=== PATIENT | female | born 1965 | race Caucasian/White ===

== ENCOUNTER 2017-01-30 16:34 | Emergency (ER) | payer SELFPAY ==
[~2017-01-30] VITALS: Ht 167.6 cm; Wt 67.0 kg
[~2017-01-30 16:34] MED LIST: TRAM50 PO
[2017-01-30 16:49] VITALS: BP 136/79; PULSE 115; RESP 20; TEMP 97.7; O2SAT 99
[2017-01-30] MEDS ORDERED: SODIUM CHLORIDE 0.9% FLUSH 10 ML FLUSH IVF PRN (17:15)
[2017-01-30] MEDS ORDERED: SODIUM CHLOR 0.9% 1000 ML INJ 1,000 ML IV ONE (17:15)
--- NOTE | 2017-01-30 17:15 | PD ---
HPI Chief Complaint: OD/ Ingestion Time Seen by Provider: 17:03 Travel History International Travel<30 days: No Contact w/Intl Traveler<30days: No Traveled to known affect area: No History of Present Illness HPI 51-year-old female with history of polysubstance use, presents to the ER today because she states that she had taken amphetamines last night, has not been able to sleep, having palpitations, and to the heroin at 3 PM in order to calm herself down. She states that she is still feeling very anxious and jittery. She denies any other coingestions. Modifying Factors: None Associated Signs & Symptoms: Palpitations, anxiety, after taking multiple substances Risk Factors: None PFSH Past Medical History Bipolar Disorder: Yes Hepatitis: Yes (C) Psychiatric: Yes : 6 Para: 4 : 2 Past Surgical History Tonsillectomy: Yes Other Surgery: Yes (BREAST AUGMENTATION) Social History Alcohol Use: No Tobacco Use: No Substance Use: No Allergies-Medications (Allergen,Severity, Reaction): Coded Allergies: No Known Allergies (Verified , 01/30/17) Reported Meds & Prescriptions Reported Meds & Active Scripts Active No Active Prescriptions or Reported Medications Review of Systems Except as stated in HPI: all other systems reviewed are Neg Physical Exam Narrative GENERAL: Middle age white female patient currently in mild distress, anxious. Awake and oriented 3. SKIN: Warm and dry. HEAD: Atraumatic. Normocephalic. EYES: Pupils equal and round. No scleral icterus. No injection or drainage. Pupils are equal, round, reactive to light bilaterally. ENT: No nasal bleeding or discharge. Mucous membranes pink and moist. NECK: Trachea midline. No JVD. CARDIOVASCULAR: Fast and regular rhythm. No murmur appreciated. RESPIRATORY: No accessory muscle use. Clear to auscultation. Breath sounds equal bilaterally. GASTROINTESTINAL: Abdomen soft, non-tender, nondistended. Hepatic and splenic margins not palpable. MUSCULOSKELETAL: No obvious deformities. No clubbing. No cyanosis. No edema. NEUROLOGICAL: Awake and alert. No obvious cranial nerve deficits. Motor grossly within normal limits. Normal speech. PSYCHIATRIC: Appropriate mood and affect; insight and judgment normal. Data Data Last Documented VS Vital Signs Date Time Temp Pulse Resp B/P Pulse Ox O2 Delivery O2 Flow Rate FiO2 01/30/17 17:20 105 20 01/30/17 17:20 100 Room Air 01/30/17 17:17 97.8 122/76 01/30/17 16:49 2 Orders Electrocardiogram (01/30/17 17:03) Complete Blood Count With Diff (01/30/17 17:03) Comprehensive Metabolic Panel (01/30/17 17:03) Prothrombin Time / Inr (Pt) (01/30/17 17:03) Act Partial Throm Time (Ptt) (01/30/17 17:03) Iv Access Insert/Monitor (01/30/17 17:03) Ecg Monitoring (01/30/17 17:03) Oximetry (01/30/17 17:03) Sodium Chloride 0.9% Flush (Ns Flush) (01/30/17 17:15) Drug Screen, Random Urine (01/30/17 17:03) Alcohol (Ethanol) (01/30/17 17:03) Salicylates (Aspirin) (01/30/17 17:03) Tylenol (Acetaminophen) (01/30/17 17:03) Sodium Chlor 0.9% 1000 Ml Inj (Ns 1000 M (01/30/17 17:15) Labs Laboratory Tests Test 01/30/17 17:30 White Blood Count 14.4 TH/MM3 Red Blood Count 4.84 MIL/MM3 Hemoglobin 14.1 GM/DL Hematocrit 42.7 % Mean Corpuscular Volume 88.3 FL Mean Corpuscular Hemoglobin 29.2 PG Mean Corpuscular Hemoglobin 33.1 % Concent Red Cell Distribution Width 13.1 % Platelet Count 358 TH/MM3 Mean Platelet Volume 8.9 FL Neutrophils (%) (Auto) 80.7 % Lymphocytes (%) (Auto) 10.4 % Monocytes (%) (Auto) 7.6 % Eosinophils (%) (Auto) 0.9 % Basophils (%) (Auto) 0.4 % Neutrophils # (Auto) 11.6 TH/MM3 Lymphocytes # (Auto) 1.5 TH/MM3 Monocytes # (Auto) 1.1 TH/MM3 Eosinophils # (Auto) 0.1 TH/MM3 Basophils # (Auto) 0.1 TH/MM3 CBC Comment DIFF FINAL Differential Comment Prothrombin Time 10.8 SEC Prothromb Time International 1.0 RATIO Ratio Activated Partial 24.6 SEC Thromboplast Time Sodium Level 139 MEQ/L Potassium Level 3.4 MEQ/L Chloride Level 101 MEQ/L Carbon Dioxide Level 27.9 MEQ/L Anion Gap 10 MEQ/L Blood Urea Nitrogen 9 MG/DL Creatinine 0.89 MG/DL Estimat Glomerular Filtration 67 ML/MIN Rate Random Glucose 128 MG/DL Calcium Level 9.0 MG/DL Total Bilirubin 0.6 MG/DL Aspartate Amino Transf 38 U/L (AST/SGOT) Alanine Aminotransferase 112 U/L (ALT/SGPT) Alkaline Phosphatase 74 U/L Total Protein 7.6 GM/DL Albumin 3.8 GM/DL Salicylates Level LESS THAN 1.7 MG/DL Acetaminophen Level LESS THAN 2.0 MCG/ML Ethyl Alcohol Level 26 MG/DL [facility] Medical Decision Making Medical Screen Exam Complete: Yes Emergency Medical Condition: Yes Medical Record Reviewed: Yes Interpretation(s) EKG shows sinus tachycardia at a rate of 100 bpm with no signs of acute ST-T changes. Laboratory Tests Test 01/30/17 17:30 White Blood Count 14.4 TH/MM3 (4.0-11.0) Neutrophils (%) (Auto) 80.7 % (16.0-70.0) Neutrophils # (Auto) 11.6 TH/MM3 (1.8-7.7) Monocytes # (Auto) 1.1 TH/MM3 (0-0.9) Potassium Level 3.4 MEQ/L (3.5-5.1) Estimat Glomerular Filtration 67 ML/MIN (>89) Rate Random Glucose 128 MG/DL (74-106) Aspartate Amino Transf 38 U/L (15-37) (AST/SGOT) Alanine Aminotransferase 112 U/L (10-53) (ALT/SGPT) Salicylates Level LESS THAN 1.7 MG/DL (2.8-20.0) Acetaminophen Level LESS THAN 2.0 MCG/ML (10.0-30.0) Ethyl Alcohol Level 26 MG/DL (0-5) Differential Diagnosis Palpitations, anxiety, substance userule out metabolic issues versus dysrhythmias versus coingestions Narrative Course Vital signs are stable in the ER. Patient had taken her last dose of heroin at 3 PM. Does not appear to have significant effects of overdose at this time. Her Tylenol and salicylate levels are negligible. No signs of dysrhythmias. At this point, plan would be to release the patient with follow-up to primary care physician. Return for new issues as needed. She should avoid using recreational substances. Diagnosis Primary Impression: Polysubstance abuse Scripts No Active Prescriptions or Reported Meds Disposition: 01 DISCHARGE HOME Condition: Stable Laine Stuart MD Jan 30, 2017 17:15
[2017-01-30 17:17] VITALS: BP 122/76; PULSE 105; RESP 20; TEMP 97.8; O2SAT 99
[2017-01-30 17:20] VITALS: RESP 20; O2SAT 100
[2017-01-30 18:03] LABS: AUTOMATED NEUTROPHIL # 11.6 TH/MM3 (1.8-7.7); BASOPHIL # 0.1 TH/MM3 (0-0.2); BASOPHIL % 0.4 % (0.0-2.0); EOSINOPHIL # 0.1 TH/MM3 (0-0.4); EOSINOPHIL % 0.9 % (0.0-4.0); HEMATOCRIT 42.7 % (35.0-46.0); HEMO FLAGS DIFF FINAL; LYMPH % 10.4 % (9.0-44.0); LYMPHOCYTE # 1.5 TH/MM3 (1.0-4.8); MEAN CELL VOLUME 88.3 FL (80.0-100.0); MEAN CORPUSCULAR HEMOGLOBIN 29.2 PG (27.0-34.0); MEAN CORPUSCULAR HGB CONC 33.1 % (32.0-36.0); MONO % 7.6 % (0.0-8.0); NEUT % 80.7 % (16.0-70.0); PLATELET COUNT 358 TH/MM3 (150-450); RED BLOOD COUNT 4.84 MIL/MM3 (4.00-5.30); RED CELL DISTRIBUTION WIDTH 13.1 % (11.6-17.2); WHITE BLOOD COUNT 14.4 TH/MM3 (4.0-11.0)
[2017-01-30 18:15] LABS: APTT (PATIENT) 24.6 SEC (24.3-30.1); PROTHROMBIN TIME - PATIENT 10.8 SEC (9.8-11.6)
[2017-01-30 18:17] LABS: ANION GAP 10 MEQ/L (5-15); AST (GOT) 38 U/L (15-37); BICARBONATE 27.9 MEQ/L (21.0-32.0); BLOOD UREA NITROGEN 9 MG/DL (7-18); CHLORIDE 101 MEQ/L (98-107); GLOMERULAR FILTRATION RATE 67 ML/MIN (>89); POTASSIUM 3.4 MEQ/L (3.5-5.1); SODIUM (NA) 139 MEQ/L (136-145)
[2017-01-30 18:19] LABS: ALKALINE PHOSPHATASE 74 U/L (45-117); ALT (GPT) 112 U/L (10-53); TOTAL BILIRUBIN ADULT 0.6 MG/DL (0.2-1.0)
[2017-01-30 18:21] LABS: ACETAMINOPHEN LESS THAN 2.0 MCG/ML (10.0-30.0)
[2017-01-30 19:13] LABS: AMPHETAMINE, URINE POS (NEG); BARBITURATES, URINE NEG (NEG); COCAINE, URINE POS (NEG)
[2017-01-30 19:54] VITALS: BP 149/91; PULSE 99; RESP 16; O2SAT 99
--- NOTE | 2017-01-30 20:12 | PD ---
Physical Exam Narrative Patient was seen by ED physician and signed out to me. Data Data Last Documented VS Vital Signs Date Time Temp Pulse Resp B/P Pulse Ox O2 Delivery O2 Flow Rate FiO2 01/30/17 19:54 99 16 149/91 99 Room Air 01/30/17 17:17 97.8 01/30/17 16:49 2 Orders Electrocardiogram (01/30/17 17:03) Complete Blood Count With Diff (01/30/17 17:03) Comprehensive Metabolic Panel (01/30/17 17:03) Prothrombin Time / Inr (Pt) (01/30/17 17:03) Act Partial Throm Time (Ptt) (01/30/17 17:03) Iv Access Insert/Monitor (01/30/17 17:03) Ecg Monitoring (01/30/17 17:03) Oximetry (01/30/17 17:03) Sodium Chloride 0.9% Flush (Ns Flush) (01/30/17 17:15) Drug Screen, Random Urine (01/30/17 17:03) Alcohol (Ethanol) (01/30/17 17:03) Salicylates (Aspirin) (01/30/17 17:03) Tylenol (Acetaminophen) (01/30/17 17:03) Sodium Chlor 0.9% 1000 Ml Inj (Ns 1000 M (01/30/17 17:15) Labs Laboratory Tests Test 01/30/17 01/30/17 17:30 18:45 White Blood Count 14.4 TH/MM3 Red Blood Count 4.84 MIL/MM3 Hemoglobin 14.1 GM/DL Hematocrit 42.7 % Mean Corpuscular Volume 88.3 FL Mean Corpuscular Hemoglobin 29.2 PG Mean Corpuscular Hemoglobin 33.1 % Concent Red Cell Distribution Width 13.1 % Platelet Count 358 TH/MM3 Mean Platelet Volume 8.9 FL Neutrophils (%) (Auto) 80.7 % Lymphocytes (%) (Auto) 10.4 % Monocytes (%) (Auto) 7.6 % Eosinophils (%) (Auto) 0.9 % Basophils (%) (Auto) 0.4 % Neutrophils # (Auto) 11.6 TH/MM3 Lymphocytes # (Auto) 1.5 TH/MM3 Monocytes # (Auto) 1.1 TH/MM3 Eosinophils # (Auto) 0.1 TH/MM3 Basophils # (Auto) 0.1 TH/MM3 CBC Comment DIFF FINAL Differential Comment Prothrombin Time 10.8 SEC Prothromb Time International 1.0 RATIO Ratio Activated Partial 24.6 SEC Thromboplast Time Sodium Level 139 MEQ/L Potassium Level 3.4 MEQ/L Chloride Level 101 MEQ/L Carbon Dioxide Level 27.9 MEQ/L Anion Gap 10 MEQ/L Blood Urea Nitrogen 9 MG/DL Creatinine 0.89 MG/DL Estimat Glomerular Filtration 67 ML/MIN Rate Random Glucose 128 MG/DL Calcium Level 9.0 MG/DL Total Bilirubin 0.6 MG/DL Aspartate Amino Transf 38 U/L (AST/SGOT) Alanine Aminotransferase 112 U/L (ALT/SGPT) Alkaline Phosphatase 74 U/L Total Protein 7.6 GM/DL Albumin 3.8 GM/DL Salicylates Level LESS THAN 1.7 MG/DL Acetaminophen Level LESS THAN 2.0 MCG/ML Ethyl Alcohol Level 26 MG/DL Urine Opiates Screen POS Urine Barbiturates Screen NEG Urine Amphetamines Screen POS Urine Benzodiazepines Screen NEG Urine Cocaine Screen POS Urine Cannabinoids Screen NEG MDM Supervised Visit with JESS: No Interpretation(s) 2000 PM. CBC with WBC 14.0. 80 neutrophil. Potassium 3.4. Salicylate and acetaminophen negative. Urine drug screen positive for opiates, amphetamines, cocaine. Alcohol 26 . Narrative Course 20 10 PM. Patient is awake alert oriented unsteady on her feet. Patient to be discharged to the custody of her boyfriend. Diagnosis Primary Impression: Polysubstance abuse Patient Instructions: General Instructions Additional Instruction: Advised [facility]. Return as needed. Scripts No Active Prescriptions or Reported Meds Disposition: 01 DISCHARGE HOME Condition: Stable Manolo Doyle MD Jan 30, 2017 20:12
--- NOTE | 2017-01-31 15:51 | EKG ---
Date Performed: 01/30/2017 Time Performed: 17:15:31 PTAGE: 51 years EKG: SINUS TACHYCARDIA ABNORMAL RHYTHM ECG NO PREVIOUS TRACING DOCTOR: Onur Delcid Interpretating Date/Time 01/31/2017 15:48:03
== END 2017-01-30 20:46 | disposition home or self-care (01) ==
LOC: NEPE 16:34
DX: F19.10 Other psychoactive substance abuse, uncomplicated (principal); R00.2 Palpitations; R94.31 Abnormal electrocardiogram [ECG] [EKG]
CPT/HCPCS: 80053; 80307; 85025; 85610; 85730; 93005; 96360; 96361; 99284; J7030